=== PATIENT | male | born 1965 | race Caucasian/White ===

== ENCOUNTER → 2021-02-01 | Outpatient (CLI) | payer BC ==
--- NOTE | 2021-02-01 15:28 | XR ---
EXAMINATION TYPE: XR lumbosacral spine min 4V DATE OF EXAM: 02/01/2021 CLINICAL HISTORY: Chronic low back pain TECHNIQUE: Frontal, lateral, and oblique images of the lumbar spine are obtained. COMPARISON: None FINDINGS: There are 5 lumbar type vertebral bodies identified. The lumbar spine shows straightened alignment without evidence of acute fracture or dislocation. Vertebral body heights and disk space he ights are within normal limits. Moderate multilevel anterior and lateral spurring. The oblique imag es appear within normal limits. The overlying soft tissue appears unremarkable. IMPRESSION: As above.
== END ==
LOC: RADXRYALE 14:56
PROVIDERS: ATTEND Physician Assistant
DX: M54.5 Low back pain (principal)
CPT/HCPCS: 72110

== ENCOUNTER 2021-05-29 17:36 | Inpatient (IN) | payer BC ==
[2021-05-29 17:58] LABS: Glucose,Whole Blood 114 mg/dL (75-99)
[2021-05-29] MEDS ORDERED: SODIUM CHLORIDE 0.9% 1,000 ML IV STA ×2 (18:09→21:18)
[2021-05-29] MEDS ORDERED: ONDANSETRON 4 MG/2 ML VIAL IVP STA (18:27)
[2021-05-29] MEDS ORDERED: MORPHINE SULFATE 4 MG/ML SYRINGE IVP STA (18:27)
--- NOTE | 2021-05-29 18:27 | ED ---
General Adult HPI - General Chief complaint: Fall Stated complaint: Syncope Time Seen by Provider: 05/29/21 17:40 Source: EMS Mode of arrival: EMS Limitations: no limitations - History of Present Illness Initial comments: 55-year-old male presents to the emergency room for syncopal episode. Patient had a syncopal episode today. He states that last night he started to not feel well and didn't have an appetite. He started to have lower abdominal pain on the right side. He did not eat dinner. He also had several episodes of diarrhea. 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 States that he did drink water. Patient states he got home and went in his crotch. He sat down started to feel lightheaded. He therefore left his crutch walk to his house and had a syncopal episode. Patient then presented to the emergency room. Patient does have a history of hypertension but otherwise does not have medical problems.Patient has no other complaints at this time including shortness of breath, chest pain, nausea or vomiting, headache, or visual changes. - Related Data Home Medications Medication Instructions Recorded Confirmed [place] (Unknown Strength) 1 tab PO ONCE PRN 05/29/21 05/29/21 Valsartan/Hydrochlorothiazide 1 tab PO DAILY 05/29/21 05/29/21 [Valsartan-Hctz 160-25 mg Tab] Allergies Allergy/AdvReac Type Severity Reaction Status Date / Time No Known Allergies Allergy Verified 05/29/21 20:56 Review of Systems ROS Statement: Those systems with pertinent positive or pertinent negative responses have been documented in the HPI. ROS Other: All systems not noted in ROS Statement are negative. Past Medical History Past Medical History: Hypertension History of Any Multi-Drug Resistant Organisms: None Reported Past Surgical History: No Surgical Hx Reported Past Psychological History: No Psychological Hx Reported Smoking Status: Never smoker Past Alcohol Use History: Occasional Past Drug Use History: Marijuana General Exam Limitations: no limitations General appearance: alert, in no apparent distress Head exam: Present: atraumatic, normocephalic, normal inspection Eye exam: Present: normal appearance, PERRL, EOMI. Absent: scleral icterus, conjunctival injection, periorbital swelling ENT exam: Present: normal exam, mucous membranes moist Neck exam: Present: normal inspection. Absent: tenderness, meningismus, lymphadenopathy Respiratory exam: Present: normal lung sounds bilaterally. Absent: respiratory distress, wheezes, rales, rhonchi, stridor Cardiovascular Exam: Present: regular rate, normal rhythm, normal heart sounds. Absent: systolic murmur, diastolic murmur, rubs, gallop, clicks GI/Abdominal exam: Present: soft, tenderness (Tenderness to the right upper and lower abdomen), normal bowel sounds. Absent: distended, guarding, rebound, rigid Neurological exam: Present: alert Course Vital Signs 05/29/21 05/29/21 05/29/21 17:37 17:51 18:21 Temperature 98.3 F Pulse Rate 92 87 Respiratory 18 Rate Blood Pressure 102/65 Blood Pressure 117/77 [Left Arm] Blood Pressure 106/71 [Right Arm Sitting] Blood Pressure 110/69 [Right Arm Standing] Blood Pressure 112/67 [Right Arm Supine] O2 Sat by Pulse 96 Oximetry 05/29/21 05/29/21 05/29/21 18:59 20:56 21:38 Temperature 97.2 F L Pulse Rate 85 80 89 Respiratory 18 17 19 Rate Blood Pressure 103/56 100/62 100/62 Blood Pressure [Left Arm] Blood Pressure [Right Arm Sitting] Blood Pressure [Right Arm Standing] Blood Pressure [Right Arm Supine] O2 Sat by Pulse 98 96 95 Oximetry EKG Findings - EKG Comments: EKG Findings:: Normal sinus rhythm, ventricular rate 88, WA interval 148, QTc 442 Medical Decision Making - Medical Decision Making Vitals are stable. Patient is of right lower quadrant tenderness with guarding. CBC did show leukocytosis. Lactic acid is normal 0.7. CMP reveals evidence of acute kidney injury likely secondary to dehydration. Suspect syncopal episode was due to dehydration as patient had not had an appetite and has not been eating or drinking. Urinalysis is negative. CT abdomen and pelvis does show findings consistent with uncomplicated acute appendicitis. There is a lung nodule noted on x-ray which patient was notified about. Patient was started on Zosyn and blood cultures were obtained. Case discussed with Dr. Royal who does accept the admission. States that certain degree will be done tomorrow morning. Patient will be kept nothing by mouth on IV fluids, IV antibiotics, and pain medication. Patient updated on plan. - Lab Data Result diagrams: 05/29/21 18:17 05/29/21 18:17 Lab Results 05/29/21 05/29/21 05/29/21 Range/Units 17:46 18:17 18:17 WBC 18.6 H (3.8-10.6) k/uL RBC 3.87 L (4.30-5.90) m/uL Hgb 13.1 (13.0-17.5) gm/dL Hct 37.1 L (39.0-53.0) % MCV 95.8 (80.0-100.0) fL MCH 33.9 (25.0-35.0) pg MCHC 35.3 (31.0-37.0) g/dL RDW 12.5 (11.5-15.5) % Plt Count 244 (150-450) k/uL MPV 7.7 Neutrophils % 83 % Lymphocytes % 9 % Monocytes % 6 % Eosinophils % 1 % Basophils % 0 % Neutrophils # 15.4 H (1.3-7.7) k/uL Lymphocytes # 1.7 (1.0-4.8) k/uL Monocytes # 1.1 H (0-1.0) k/uL Eosinophils # 0.2 (0-0.7) k/uL Basophils # 0.1 (0-0.2) k/uL PT 10.0 (9.0-12.0) sec INR 0.9 (<1.2) APTT 22.0 (22.0-30.0) sec Sodium (137-145) mmol/L Potassium (3.5-5.1) mmol/L Chloride (98-107) mmol/L Carbon Dioxide (22-30) mmol/L Anion Gap mmol/L BUN (9-20) mg/dL Creatinine (0.66-1.25) mg/dL Est GFR (CKD-EPI)AfAm (>60 ml/min/1.73 sqM) Est GFR (CKD-EPI)NonAf (>60 ml/min/1.73 sqM) Glucose (74-99) mg/dL POC Glucose (mg/dL) 114 H (75-99) mg/dL POC Glu Piano Assembler ID Mobile, Delfina Plasma Lactic Acid Dong (0.7-2.0) mmol/L Calcium (8.4-10.2) mg/dL Magnesium (1.6-2.3) mg/dL Total Bilirubin (0.2-1.3) mg/dL AST (17-59) U/L ALT (4-49) U/L Alkaline Phosphatase (38-126) U/L Troponin I (0.000-0.034) ng/mL Total Protein (6.3-8.2) g/dL Albumin (3.5-5.0) g/dL Urine Color Urine Appearance (Clear) Urine pH (5.0-8.0) Ur Specific [place] (1.001-1.035) Urine Protein (Negative) Urine Glucose (UA) (Negative) Urine Ketones (Negative) Urine Blood (Negative) Urine Nitrite (Negative) Urine Bilirubin (Negative) Urine Urobilinogen (<2.0) mg/dL Ur Leukocyte Esterase (Negative) Urine RBC (0-5) /hpf Urine WBC (0-5) /hpf Ur Squamous Epith Cells (0-4) /hpf Urine Bacteria (None) /hpf Hyaline Casts (0-2) /lpf Urine Mucus (None) /hpf 05/29/21 05/29/21 05/29/21 Range/Units 18:17 18:17 18:17 WBC (3.8-10.6) k/uL RBC (4.30-5.90) m/uL Hgb (13.0-17.5) gm/dL Hct (39.0-53.0) % MCV (80.0-100.0) fL MCH (25.0-35.0) pg MCHC (31.0-37.0) g/dL RDW (11.5-15.5) % Plt Count (150-450) k/uL MPV Neutrophils % % Lymphocytes % % Monocytes % % Eosinophils % % Basophils % % Neutrophils # (1.3-7.7) k/uL Lymphocytes # (1.0-4.8) k/uL Monocytes # (0-1.0) k/uL Eosinophils # (0-0.7) k/uL Basophils # (0-0.2) k/uL PT (9.0-12.0) sec INR (<1.2) APTT (22.0-30.0) sec Sodium 136 L (137-145) mmol/L Potassium 3.7 (3.5-5.1) mmol/L Chloride 101 (98-107) mmol/L Carbon Dioxide 21 L (22-30) mmol/L Anion Gap 14 mmol/L BUN 25 H (9-20) mg/dL Creatinine 1.99 H (0.66-1.25) mg/dL Est GFR (CKD-EPI)AfAm 42 (>60 ml/min/1.73 sqM) Est GFR (CKD-EPI)NonAf 37 (>60 ml/min/1.73 sqM) Glucose 114 H (74-99) mg/dL POC Glucose (mg/dL) (75-99) mg/dL POC Glu Piano Assembler ID Plasma Lactic Acid Dong 0.7 (0.7-2.0) mmol/L Calcium 9.1 (8.4-10.2) mg/dL Magnesium 1.9 (1.6-2.3) mg/dL Total Bilirubin 0.9 (0.2-1.3) mg/dL AST 27 (17-59) U/L ALT 27 (4-49) U/L Alkaline Phosphatase 65 (38-126) U/L Troponin I (0.000-0.034) ng/mL Total Protein 6.5 (6.3-8.2) g/dL Albumin 4.0 (3.5-5.0) g/dL Urine Color Yellow Urine Appearance Cloudy (Clear) Urine pH 5.5 (5.0-8.0) Ur Specific [place] 1.024 (1.001-1.035) Urine Protein 1+ H (Negative) Urine Glucose (UA) Negative (Negative) Urine Ketones Negative (Negative) Urine Blood Negative (Negative) Urine Nitrite Negative (Negative) Urine Bilirubin Negative (Negative) Urine Urobilinogen <2.0 (<2.0) mg/dL Ur Leukocyte Esterase Negative (Negative) Urine RBC 1 (0-5) /hpf Urine WBC 10 H (0-5) /hpf Ur Squamous Epith Cells 1 (0-4) /hpf Urine Bacteria Rare H (None) /hpf Hyaline Casts 70 H (0-2) /lpf Urine Mucus Moderate H (None) /hpf 05/29/21 Range/Units 18:17 WBC (3.8-10.6) k/uL RBC (4.30-5.90) m/uL Hgb (13.0-17.5) gm/dL Hct (39.0-53.0) % MCV (80.0-100.0) fL MCH (25.0-35.0) pg MCHC (31.0-37.0) g/dL RDW (11.5-15.5) % Plt Count (150-450) k/uL MPV Neutrophils % % Lymphocytes % % Monocytes % % Eosinophils % % Basophils % % Neutrophils # (1.3-7.7) k/uL Lymphocytes # (1.0-4.8) k/uL Monocytes # (0-1.0) k/uL Eosinophils # (0-0.7) k/uL Basophils # (0-0.2) k/uL PT (9.0-12.0) sec INR (<1.2) APTT (22.0-30.0) sec Sodium (137-145) mmol/L Potassium (3.5-5.1) mmol/L Chloride (98-107) mmol/L Carbon Dioxide (22-30) mmol/L Anion Gap mmol/L BUN (9-20) mg/dL Creatinine (0.66-1.25) mg/dL Est GFR (CKD-EPI)AfAm (>60 ml/min/1.73 sqM) Est GFR (CKD-EPI)NonAf (>60 ml/min/1.73 sqM) Glucose (74-99) mg/dL POC Glucose (mg/dL) (75-99) mg/dL POC Glu Piano Assembler ID Plasma Lactic Acid Dong (0.7-2.0) mmol/L Calcium (8.4-10.2) mg/dL Magnesium (1.6-2.3) mg/dL Total Bilirubin (0.2-1.3) mg/dL AST (17-59) U/L ALT (4-49) U/L Alkaline Phosphatase (38-126) U/L Troponin I <0.012 (0.000-0.034) ng/mL Total Protein (6.3-8.2) g/dL Albumin (3.5-5.0) g/dL Urine Color Urine Appearance (Clear) Urine pH (5.0-8.0) Ur Specific [place] (1.001-1.035) Urine Protein (Negative) Urine Glucose (UA) (Negative) Urine Ketones (Negative) Urine Blood (Negative) Urine Nitrite (Negative) Urine Bilirubin (Negative) Urine Urobilinogen (<2.0) mg/dL Ur Leukocyte Esterase (Negative) Urine RBC (0-5) /hpf Urine WBC (0-5) /hpf Ur Squamous Epith Cells (0-4) /hpf Urine Bacteria (None) /hpf Hyaline Casts (0-2) /lpf Urine Mucus (None) /hpf Disposition Clinical Impression: Appendicitis, JAGJIT (acute kidney injury) Disposition: ADMITTED IP TO THIS HOSP Is patient prescribed a controlled substance at d/c from ED?: No Referrals: Shaheen Giron DO [Primary Care Provider] - 1-2 days Time of Disposition: 22:00
[2021-05-29 18:29] LABS: Basophils # (A) 0.1 k/uL (0-0.2); Basophils % (A) 0 %; Eosinophils # (A) 0.2 k/uL (0-0.7); Eosinophils % (A) 1 %; HCT 37.1 % (39.0-53.0); HGB 13.1 gm/dL (13.0-17.5); Lymphocytes # (A) 1.7 k/uL (1.0-4.8); Lymphocytes % (A) 9 %; MCH 33.9 pg (25.0-35.0); MCHC 35.3 g/dL (31.0-37.0); MCV 95.8 fL (80.0-100.0); Mean Platelet Volume 7.7; Monocytes # (A) 1.1 k/uL (0-1.0); Monocytes % (A) 6 %; Neutrophils # (A) 15.4 k/uL (1.3-7.7); Neutrophils % (A) 83 %; Platelet Count 244 k/uL (150-450); RBC 3.87 m/uL (4.30-5.90); RDW 12.5 % (11.5-15.5); WBC 18.6 k/uL (3.8-10.6)
[2021-05-29 18:41] LABS: Calcium 9.1 mg/dL (8.4-10.2); Magnesium 1.9 mg/dL (1.6-2.3); Potassium 3.7 mmol/L (3.5-5.1); Total Bilirubin 0.9 mg/dL (0.2-1.3); Total Protein 6.5 g/dL (6.3-8.2)
[2021-05-29 18:45] LABS: INR 0.9 (<1.2)
[2021-05-29 19:10] LABS: Appearance,Urine Cloudy (Clear); Bacteria,Urine Rare /hpf; Bilirubin,Urine Negative (Negative); Blood,Urine Negative (Negative); Color,Urine Yellow; Glucose,Urine (UA) Negative (Negative); Hyaline Casts,Urine 70 /lpf (0-2); Ketones,Urine Negative (Negative); Leukocyte Esterase,Urine Negative (Negative); Mucus,Urine Moderate /hpf; Nitrite,Urine Negative (Negative); PH, Urine 5.5 (5.0-8.0); Protein,Urine 1+ (Negative); RBC,Urine 1 /hpf (0-5); Specific Gravity,Urine 1.024 (1.001-1.035); Squamous Epithelial Cell,Urine 1 /hpf (0-4); Urobilinogen,Urine <2.0 mg/dL (<2.0); WBC,Urine 10 /hpf (0-5)
--- NOTE | 2021-05-29 19:29 | XR ---
EXAMINATION TYPE: XR chest 2V DATE OF EXAM: 05/29/2021 COMPARISON: NONE HISTORY: Syncope. TECHNIQUE: Frontal and lateral views of the chest are obtained. FINDINGS: There is a 1.6 cm right lower lung nodule. Otherwise no significant infiltrate pleural eff usion, or pneumothorax seen. The cardiac silhouette size is within normal limits. The osseous stru ctures are intact. IMPRESSION: 1.6 cm right lower lung nodule. Recommend CT for further evaluation. Otherwise no acute cardiopulmonary abnormality.
--- NOTE | 2021-05-29 21:12 | CT ---
EXAMINATION TYPE: CT abdomen pelvis wo con DATE OF EXAM: 05/29/2021 COMPARISON: None available. HISTORY: Right lower quadrant pain. Automated exposure control for dose reduction was used. TECHNIQUE: Helical acquisition of images was performed from the lung bases through the pelvis. FINDINGS: LUNG BASES: No significant abnormality is appreciated. LIVER/GB: No acute abnormality is appreciated. Hepatic steatosis is seen. PANCREAS: No significant abnormality is seen. SPLEEN: No significant abnormality is seen. ADRENALS: No significant abnormality is seen. KIDNEYS: No significant abnormality is seen. FREE AIR: No free air is visualized RETROPERITONEAL ADENOPATHY: None visualized REPRODUCTIVE ORGANS: No significant abnormality is seen URINARY BLADDER: No significant abnormality is seen. PELVIC ADENOPATHY: None visualized. OSSEOUS STRUCTURES: No significant abnormality is seen. BOWEL: Visualized blind-ending pouch in the right lower quadrant with surrounding inflammatory juarez es and measuring up to 1.3 cm in diameter. No bowel obstruction, free air or fluid. OTHER: None. IMPRESSION: FINDINGS CONSISTENT WITH UNCOMPLICATED ACUTE APPENDICITIS. FINDINGS REPORTED TO CARING CLINICIAN BY ME AT TIME OF DICTATION.
[2021-05-29] MEDS ORDERED: PIPERACILLIN-TAZOBACTAM 3.375 GM in SODIUM CHLORIDE 0.9% 100 ML IVPB STA (21:18)
[2021-05-29] MEDS ORDERED: NALOXONE 0.4 MG/ML 1 ML VIAL IV PRN (21:56)
[2021-05-29] MEDS ORDERED: HYDROmorphone 0.5 MG/0.5 ML SYRINGE IVP PRN (21:56)
[2021-05-29] MEDS ORDERED: ONDANSETRON 4 MG/2 ML VIAL IVP PRN (21:56)
[2021-05-30] MEDS: SODIUM CHLORIDE 0.9% 1,000 ML IV SCH ×4 (02:10→21:25)
[2021-05-30] MEDS: PIPERACILLIN-TAZOBACTAM 3.375 GM in SODIUM CHLORIDE 0.9% 100 ML IVPB SCH ×3 (05:28→21:24)
[2021-05-30] MEDS ORDERED: PIPERACILLIN-TAZOBACTAM 3.375 GM in SODIUM CHLORIDE 0.9% 100 ML IVPB SCH (06:00)
--- NOTE | 2021-05-30 06:39 | P.GSHP ---
History of Present Illness H&P Date: 05/30/21 Chief Complaint: Acute appendicitis 55-year-old male comes in the ER last night after a syncopal episode complaining of abdominal pain. Patient says he passed out for approximately 10 minutes. Started having pain on Monday. The pain became slightly more severe yesterday. Pain was mostly in the right lower quadrant. 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 Appetite was diminished although better now. Normal bowel habits. White blood cell count is elevated. CAT scan shows uncomplicated appendicitis. Past Medical History Past Medical History: Hypertension History of Any Multi-Drug Resistant Organisms: None Reported Past Surgical History: No Surgical Hx Reported Past Anesthesia/Blood Transfusion Reactions: No Reported Reaction Past Psychological History: No Psychological Hx Reported Smoking Status: Never smoker Past Alcohol Use History: Occasional Past Drug Use History: Marijuana Medications and Allergies Home Medications Medication Instructions Recorded Confirmed Type [place] (Unknown Strength) 1 tab PO ONCE PRN 05/29/21 05/29/21 History Valsartan/Hydrochlorothiazide 1 tab PO DAILY 05/29/21 05/29/21 History [Valsartan-Hctz 160-25 mg Tab] Allergies Allergy/AdvReac Type Severity Reaction Status Date / Time No Known Allergies Allergy Verified 05/29/21 20:56 Surgical - Exam Vital Signs Temp Pulse Resp BP Pulse Ox 98.3 F 92 18 102/65 96 05/29/21 17:37 05/29/21 17:37 05/29/21 17:37 05/29/21 17:37 05/29/21 17:37 Physical exam: General: Well-developed, well-nourished HEENT: Normocephalic, sclerae nonicteric Abdomen: Right lower quadrant tenderness, nondistended Extremities: No edema Neuro: Alert and oriented Results - Labs 05/29/21 18:17 05/29/21 18:17 Abnormal Lab Results - Last 24 Hours (Table) 05/29/21 05/29/21 05/29/21 Range/Units 17:46 18:17 18:17 WBC 18.6 H (3.8-10.6) k/uL RBC 3.87 L (4.30-5.90) m/uL Hct 37.1 L (39.0-53.0) % Neutrophils # 15.4 H (1.3-7.7) k/uL Monocytes # 1.1 H (0-1.0) k/uL Sodium (137-145) mmol/L Carbon Dioxide (22-30) mmol/L BUN (9-20) mg/dL Creatinine (0.66-1.25) mg/dL Glucose (74-99) mg/dL POC Glucose (mg/dL) 114 H (75-99) mg/dL Urine Protein 1+ H (Negative) Urine WBC 10 H (0-5) /hpf Urine Bacteria Rare H (None) /hpf Hyaline Casts 70 H (0-2) /lpf Urine Mucus Moderate H (None) /hpf 05/29/21 Range/Units 18:17 WBC (3.8-10.6) k/uL RBC (4.30-5.90) m/uL Hct (39.0-53.0) % Neutrophils # (1.3-7.7) k/uL Monocytes # (0-1.0) k/uL Sodium 136 L (137-145) mmol/L Carbon Dioxide 21 L (22-30) mmol/L BUN 25 H (9-20) mg/dL Creatinine 1.99 H (0.66-1.25) mg/dL Glucose 114 H (74-99) mg/dL POC Glucose (mg/dL) (75-99) mg/dL Urine Protein (Negative) Urine WBC (0-5) /hpf Urine Bacteria (None) /hpf Hyaline Casts (0-2) /lpf Urine Mucus (None) /hpf Diabetes panel 05/29/21 Range/Units 18:17 Sodium 136 L (137-145) mmol/L Potassium 3.7 (3.5-5.1) mmol/L Chloride 101 (98-107) mmol/L Carbon Dioxide 21 L (22-30) mmol/L BUN 25 H (9-20) mg/dL Creatinine 1.99 H (0.66-1.25) mg/dL Glucose 114 H (74-99) mg/dL Calcium 9.1 (8.4-10.2) mg/dL AST 27 (17-59) U/L ALT 27 (4-49) U/L Alkaline Phosphatase 65 (38-126) U/L Total Protein 6.5 (6.3-8.2) g/dL Albumin 4.0 (3.5-5.0) g/dL Calcium panel 05/29/21 Range/Units 18:17 Calcium 9.1 (8.4-10.2) mg/dL Albumin 4.0 (3.5-5.0) g/dL Pituitary panel 05/29/21 Range/Units 18:17 Sodium 136 L (137-145) mmol/L Potassium 3.7 (3.5-5.1) mmol/L Chloride 101 (98-107) mmol/L Carbon Dioxide 21 L (22-30) mmol/L BUN 25 H (9-20) mg/dL Creatinine 1.99 H (0.66-1.25) mg/dL Glucose 114 H (74-99) mg/dL Calcium 9.1 (8.4-10.2) mg/dL Adrenal panel 05/29/21 Range/Units 18:17 Sodium 136 L (137-145) mmol/L Potassium 3.7 (3.5-5.1) mmol/L Chloride 101 (98-107) mmol/L Carbon Dioxide 21 L (22-30) mmol/L BUN 25 H (9-20) mg/dL Creatinine 1.99 H (0.66-1.25) mg/dL Glucose 114 H (74-99) mg/dL Calcium 9.1 (8.4-10.2) mg/dL Total Bilirubin 0.9 (0.2-1.3) mg/dL AST 27 (17-59) U/L ALT 27 (4-49) U/L Alkaline Phosphatase 65 (38-126) U/L Total Protein 6.5 (6.3-8.2) g/dL Albumin 4.0 (3.5-5.0) g/dL Assessment and Plan (1) Appendicitis Narrative/Plan: 55-year-old male with acute appendicitis. Will proceed with laparoscopic appendectomy, possible open appendectomy at this time. Risks of bleeding, infection, scarring, hernia, abscess, bladder bowel and ureteral injury, conversion to an open procedure reviewed. He understands and wishes to proceed. Current Visit: Yes Status: Acute Code(s): K37 - UNSPECIFIED APPENDICITIS SNOMED Code(s): 62529644
[2021-05-30] MEDS ORDERED: ONDANSETRON 4 MG/2 ML VIAL ONE (06:41)
[2021-05-30] MEDS ORDERED: fentaNYL (PF) 50 MCG/ML 2 ML AMP ONE (06:41)
[2021-05-30] MEDS ORDERED: NEOSTIGMINE 1 MG/ML 10 ML VIAL ONE (06:41)
[2021-05-30] MEDS ORDERED: SUCCINYLCHOLINE CHLORIDE 100 MG/5 ML SYR IV ONE (06:41)
[2021-05-30] MEDS ORDERED: DEXAMETHASONE SOD PHOSPHATE 10 MG/ML 1 ML VIAL ONE (06:41)
[2021-05-30] MEDS ORDERED: ROCURONIUM 10 MG/ML (5 ML VIAL) IV ONE (06:41)
[2021-05-30] MEDS ORDERED: MIDAZOLAM 2 MG/2 ML VIAL ONE (06:41)
[2021-05-30] MEDS ORDERED: GLYCOPYRROLATE 0.2 MG/ML 2 ML VIAL ONE (06:41)
[2021-05-30] MEDS ORDERED: KETOROLAC 15 MG/ML 1 ML VIAL ONE (06:41)
[2021-05-30] MEDS ORDERED: LIDOCAINE 1% INJ 10MG/ML (20 ML MDV) ONE (06:41)
[2021-05-30] MEDS ORDERED: PROPOFOL 10 MG/ML 20 ML VIAL IV ONE (06:41)
[2021-05-30] MEDS ORDERED: IV FLUID CONTINUATION 1,000 ML IV ONE (06:45)
[2021-05-30] MEDS ORDERED: BUPIVACAINE (PF) 0.5% 30 ML VIAL SQ ONE ×2 (07:13)
[2021-05-30] MEDS ORDERED: LACTATED RINGERS 1,000 ML IV ONE (07:13)
[2021-05-30] MEDS ORDERED: HYDROmorphone 1 MG/ML 1 ML SYRINGE IVP PRN (07:44)
[2021-05-30] MEDS ORDERED: HYDROcodone/APAP 5-325MG 1 EACH TAB PO PRN (07:44)
--- NOTE | 2021-05-30 07:47 | P.OP ---
Date of Procedure: 05/30/21 Procedure(s) Performed: PREOPERATIVE DIAGNOSIS: Acute appendicitis POSTOPERATIVE DIAGNOSIS: Acute appendicitis with periappendiceal abscess and localized rupture PROCEDURE: Laparoscopic appendectomy SURGEON: Genny EBL: Rachel Vargas ANESTHESIA: General COMPLICATIONS: None OPERATIVE PROCEDURE: The patient was brought and placed on the operating table in the supine position. The patient was placed under general anesthesia. The abdomen was prepped and draped in the usual sterile fashion. A small vertical infraumbilical incision was made. The fascia was retracted anteriorly with Rickreall forceps. The Veress needle was advanced into the peritoneal cavity. The saline drop test was normal. Insufflation took place to 15 mmHg. A 5 mm trocar was then placed. An additional 5 mm suprapubic trocar was placed under direct visualization as well as a 12 mm left lower quadrant trocar under direct visualization. The appendix was inspected. It was acutely inflamed. There was a small 2 similar abscess adjacent to the midportion of the appendix that was contained. This was fully evacuated. This was then irrigated area no further purulence was seen. The mesoappendix was divided using the LigaSure device. The base of the appendix was divided using a linear 45 mm intestinal stapler. The appendix was brought out of the peritoneal cavity through the left lower quadrant trocar site with an Endo Catch bag. The fascia at the 12 mm site was closed using a Thierno-Nya 0 Vicryl stitch. The skin at all 3 sites was closed using 4-0 Monocryl sutures. Skin glue was then applied. DISPOSITION: Stable to recovery room
[2021-05-30] MEDS ORDERED: HYDROmorphone 0.5 MG/0.5 ML SYRINGE IVP ONE ×3 (07:50→08:10)
[2021-05-30] MEDS ORDERED: KETOROLAC 15 MG/ML 1 ML VIAL IVP ONE (07:52)
[2021-05-30] MEDS ORDERED: diphenhydrAMINE 50 MG/ML 1 ML VIAL IVP ONE (07:59)
[2021-05-30] MEDS ORDERED: VALSARTAN 160 MG TAB PO SCH ×2 (09:00)
[2021-05-30] MEDS ORDERED: hydroCHLOROthiazide 25 MG TAB PO SCH (09:00)
[2021-05-30] MEDS: HEPARIN SODIUM,PORCINE/PF 5,000 UNIT/0.5 ML SYRINGE SQ SCH ×2 (09:02→16:26)
[2021-05-30] MEDS: DOCUSATE 100 MG CAP PO SCH ×2 (09:02→21:24)
[2021-05-30] MEDS: metroNIDAZOLE-NS PMX 500 MG in SALINE 1 100ML.BAG IVPB SCH ×2 (09:45→16:27)
--- NOTE | 2021-05-30 13:16 | P.CONS ---
History of Present Illness - Reason for Consult Acute renal failure, sepsis - History of Present Illness 53-year-old male came in with a syncopal episode and abdominal pain found to have appendicitis and was subsequently admitted. Patient appears to have acute renal failure patient appears to have significant intravascular depletion patient creatinine went up to 1.9 patient is presently on IV fluids which will be continued. Patient was bit hypotensive. Patient is presently on Zosyn and metronidazole. And Artane metronidazole. Patient is status post appendectomy. Patient usually uses a an ALLY inhibitor and a diuretic combination pill the blood pressure along with Norvasc. Patient had leukocytosis with a white blood cell count going up. In thousand patient is feeling better after the appende ctomy patient underwent laparoscopic appendectomy found to have acute appendicitis with periappendiceal abscess and localized rupture. REVIEW OF SYSTEMS: CONSTITUTIONAL: No fever, no malaise, no fatigue. HEENT: No recent visual problems or hearing problems. Denied any sore throat. CARDIOVASCULAR: No chest pain, orthopnea, PND, no palpitationse. PULMONARY: No shortness of breath, no cough, no hemoptysis. GASTROINTESTINAL: As mentioned in HPI NEUROLOGICAL: No headaches, no weakness, no numbness. HEMATOLOGICAL: Denies any bleeding or petechiae. GENITOURINARY: Denies any burning micturition, frequency, or urgency. MUSCULOSKELETAL/RHEUMATOLOGICAL: Denies any joint pain, swelling, or any muscle pain. ENDOCRINE: Denies any polyuria or polydipsia. The rest of the 14-point review of systems is negative. PHYSICAL EXAMINATION: GENERAL: The patient is alert and oriented x3, not in any acute distress. Well developed, well nourished. HEENT: Pupils are round and equally reacting to light. EOMI. No scleral icterus. No conjunctival pallor. Normocephalic, atraumatic. No pharyngeal erythema. No thyromegaly. CARDIOVASCULAR: S1 and S2 present. No murmurs, rubs, or gallops. PULMONARY: Chest is clear to auscultation, no wheezing or crackles. ABDOMEN: Soft, nontender, nondistended, normoactive bowel sounds. No palpable organomegaly. Surgical site areas appear to be clean MUSCULOSKELETAL: No joint swelling or deformity. EXTREMITIES: No cyanosis, clubbing, or pedal edema. NEUROLOGICAL: Gross neurological examination did not reveal any focal deficits. SKIN: No rashes. Assessment and plan -Acute appendicitis: Patient is status post appendectomy patient has periappendicular abscess and patient is an above-mentioned antibiotics which will be continued. -Syncope secondary to sepsis and intravascular depletion and hypotension continue with IV fluids and aggressive hydration -Hypotension secondary to sepsis and appendectomy antidepressive medications will be held -Acute renal failure on chronic kidney disease stage II acute renal failure secondary to hypotension intravascular depletion and sepsis IV fluids will be continued hold off on ALLY inhibitor and diuretic combination hold off and other antidepressants medications as well We will continue to follow the patient -DVT prophylaxis: As per primary service Past Medical History Past Medical History: Hypertension History of Any Multi-Drug Resistant Organisms: None Reported Past Surgical History: No Surgical Hx Reported Past Anesthesia/Blood Transfusion Reactions: No Reported Reaction Past Psychological History: No Psychological Hx Reported Smoking Status: Never smoker Past Alcohol Use History: Occasional Past Drug Use History: Marijuana Medications and Allergies Home Medications Medication Instructions Recorded Confirmed Type Brea (Unknown Strength) 1 tab PO ONCE PRN 05/29/21 05/29/21 History Valsartan/Hydrochlorothiazide 1 tab PO DAILY 05/29/21 05/29/21 History [Valsartan-Hctz 160-25 mg Tab] Allergies Allergy/AdvReac Type Severity Reaction Status Date / Time No Known Allergies Allergy Verified 05/29/21 20:56 Physical Exam Vitals: Vital Signs Temp Pulse Pulse Pulse Resp BP BP 05/30/21 10:45 87 05/30/21 10:15 77 05/30/21 09:45 86 05/30/21 09:30 89 05/30/21 09:15 91 05/30/21 09:00 88 05/30/21 08:45 98.0 F 89 16 05/30/21 08:16 91 16 05/30/21 08:01 81 16 05/30/21 07:44 97.1 F L 77 16 05/30/21 02:42 98.3 F 84 16 130/80 05/30/21 02:10 16 05/29/21 23:04 98.1 F 16 05/29/21 22:26 77 05/29/21 21:38 89 19 100/62 05/29/21 20:56 97.2 F L 80 17 100/62 05/29/21 18:59 85 18 103/56 05/29/21 18:21 87 05/29/21 17:51 117/77 05/29/21 17:37 98.3 F 92 18 102/65 BP BP BP BP Pulse Ox 05/30/21 10:45 106/64 91 L 05/30/21 10:15 109/81 93 L 05/30/21 09:45 134/81 92 L 05/30/21 09:30 128/75 92 L 05/30/21 09:15 145/86 94 L 05/30/21 09:00 133/81 96 05/30/21 08:45 127/76 93 L 05/30/21 08:16 108/63 96 05/30/21 08:01 113/65 95 05/30/21 07:44 135/85 99 05/30/21 02:42 97 05/30/21 02:10 05/29/21 23:04 119/73 97 05/29/21 22:26 97 05/29/21 21:38 95 05/29/21 20:56 96 05/29/21 18:59 98 05/29/21 18:21 05/29/21 17:51 106/71 110/69 112/67 05/29/21 17:37 96 Intake and Output 05/29/21 05/30/21 05/30/21 22:59 06:59 14:59 Intake Total 200 350 Output Total 5 Balance 200 345 Intake: IV 200 350 Output: Estimated Blood Loss 5 Other: Voiding Method Toilet # Voids 2 Weight 99.79 kg Results CBC & Chem 7: 05/29/21 18:17 05/29/21 18:17 Labs: Abnormal Lab Results - Last 24 Hours (Table) 05/29/21 05/29/21 05/29/21 Range/Units 17:46 18:17 18:17 WBC 18.6 H (3.8-10.6) k/uL RBC 3.87 L (4.30-5.90) m/uL Hct 37.1 L (39.0-53.0) % Neutrophils # 15.4 H (1.3-7.7) k/uL Monocytes # 1.1 H (0-1.0) k/uL Sodium (137-145) mmol/L Carbon Dioxide (22-30) mmol/L BUN (9-20) mg/dL Creatinine (0.66-1.25) mg/dL Glucose (74-99) mg/dL POC Glucose (mg/dL) 114 H (75-99) mg/dL Urine Protein 1+ H (Negative) Urine WBC 10 H (0-5) /hpf Urine Bacteria Rare H (None) /hpf Hyaline Casts 70 H (0-2) /lpf Urine Mucus Moderate H (None) /hpf 05/29/21 Range/Units 18:17 WBC (3.8-10.6) k/uL RBC (4.30-5.90) m/uL Hct (39.0-53.0) % Neutrophils # (1.3-7.7) k/uL Monocytes # (0-1.0) k/uL Sodium 136 L (137-145) mmol/L Carbon Dioxide 21 L (22-30) mmol/L BUN 25 H (9-20) mg/dL Creatinine 1.99 H (0.66-1.25) mg/dL Glucose 114 H (74-99) mg/dL POC Glucose (mg/dL) (75-99) mg/dL Urine Protein (Negative) Urine WBC (0-5) /hpf Urine Bacteria (None) /hpf Hyaline Casts (0-2) /lpf Urine Mucus (None) /hpf
[2021-05-31] MEDS: metroNIDAZOLE-NS PMX 500 MG in SALINE 1 100ML.BAG IVPB SCH ×2 (01:32→09:50)
[2021-05-31] MEDS: HEPARIN SODIUM,PORCINE/PF 5,000 UNIT/0.5 ML SYRINGE SQ SCH ×2 (01:32→09:51)
[2021-05-31] MEDS: PIPERACILLIN-TAZOBACTAM 3.375 GM in SODIUM CHLORIDE 0.9% 100 ML IVPB SCH (05:04)
[2021-05-31 05:40] LABS: Basophils % (A) 0 %; Eosinophils % (A) 0 %; HCT 36.4 % (39.0-53.0); HGB 12.2 gm/dL (13.0-17.5); Lymphocytes # (A) 0.7 k/uL (1.0-4.8); Lymphocytes % (A) 6 %; MCH 32.7 pg (25.0-35.0); MCHC 33.4 g/dL (31.0-37.0); MCV 97.6 fL (80.0-100.0); Mean Platelet Volume 7.4; Monocytes # (A) 0.5 k/uL (0-1.0); Monocytes % (A) 4 %; Neutrophils # (A) 12.1 k/uL (1.3-7.7); Neutrophils % (A) 90 %; Platelet Count 251 k/uL (150-450); RBC 3.73 m/uL (4.30-5.90); RDW 12.8 % (11.5-15.5); WBC 13.5 k/uL (3.8-10.6)
[2021-05-31] MEDS: SODIUM CHLORIDE 0.9% 1,000 ML IV SCH (05:51)
[2021-05-31 05:58] LABS: African American GFR (CKD) 69 (>60 ml/min/1.73 sqM); Anion Gap 7 mmol/L; Blood Urea Nitrogen 19 mg/dL (9-20); Carbon Dioxide 24 mmol/L (22-30); Chloride 107 mmol/L (98-107); Glucose 117 mg/dL (74-99); Non-African American GFR(CKD) 60 (>60 ml/min/1.73 sqM); Potassium 4.2 mmol/L (3.5-5.1); Sodium 138 mmol/L (137-145)
[2021-05-31 07:22] VITALS: BP 128/79; PULSE 76; RESP 16; TEMP 98.8
[2021-05-31] MEDS: DOCUSATE 100 MG CAP PO SCH (09:47)
--- NOTE | 2021-05-31 11:38 | P.DS ---
<Azalea Hutton - Last Filed: 05/31/21 11:36> Hospital Course: Discharge diagnosis 1. Acute appendicitis with periappendiceal abscess and localized rupture status post laparoscopic appendectomy Hospital course 55-year-old male comes in the ER last night after a syncopal episode complaining of abdominal pain. Patient says he passed out for approximately 10 minutes. Started having pain on Monday. The pain became slightly more severe yesterday. Pain was mostly in the right lower quadrant. 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 Appetite was diminished although better now. Normal bowel habits. White blood cell count is elevated. CAT scan shows uncomplicated appendicitis. Patient is status post laparoscopic appendectomy. Patient tolerated surgery well. He reports that his pain is controlled. He is tolerating diet. He is having flatus and bowel movements. He is afebrile. His white count history down to 13.5. Incision sites clean dry and intact. Patient is stable for discharge. Please refer to chart for any further details. [employer] note has been reviewed by physician. Signing provider agrees with the documented findings, assessment, and plan of care. Patient Condition at Discharge: Stable Plan - Discharge Summary Discharge Rx Participant: No New Discharge Prescriptions: New metroNIDAZOLE [Flagyl] 500 mg PO TID #21 tab Amoxicillin/Potassium Clav [Augmentin 875-125 Tablet] 1 tab PO BID 7 Days #14 tab HYDROcodone/APAP 5-325MG [[employer] 5-325] 1 tab PO Q6HR PRN 3 Days #12 tab PRN Reason: Pain Losartan [Cozaar] 50 mg PO DAILY #30 tab Discontinued Valsartan/Hydrochlorothiazide [Valsartan-Hctz 160-25 mg Tab] 1 tab PO DAILY No Action [employer] (Unknown Strength) 1 tab PO ONCE PRN PRN Reason: Pain Discharge Medication List [employer] (Unknown Strength) 1 tab PO ONCE PRN 05/29/21 [History] Amoxicillin/Potassium Clav [Augmentin 875-125 Tablet] 1 tab PO BID 7 Days #14 tab 05/31/21 [Rx] HYDROcodone/APAP 5-325MG [[employer] 5-325] 1 tab PO Q6HR PRN 3 Days #12 tab 05/31/21 [Rx] Losartan [Cozaar] 50 mg PO DAILY #30 tab 05/31/21 [Rx] metroNIDAZOLE [Flagyl] 500 mg PO TID #21 tab 05/31/21 [Rx] Follow up Appointment(s)/Referral(s): Yang Royal MD [Medical Doctor] - 1 Week Shaheen Giron DO [Primary Care Provider] - 3 Days Activity/Diet/Wound Care/Special Instructions: No driving while taking [employer] No lifting over 10 pounds You may shower. No soaking or tub baths for 2 weeks Very light activity until you are reevaluated at your follow up appointment with your surgeon Do not take any Motrin due to elevated renal function Discharge Disposition: HOME SELF-CARE <Yang Royal - Last Filed: 05/31/21 12:16> Providers Date of admission: 05/31/21 11:01 Attending physician: Yang Royal Consults: 05/30/21 07:45 Consult Physician Routine Consulting Provider: Laine Paulino Consult Reason/Comments: Medical management Do you want consulting provider notified?: Yes Primary care physician: Shaheen Giron - Discharge Diagnosis(es) (1) Appendicitis Current Visit: Yes Status: Acute Hospital Course: As above. Patient doing well today. Labs improved. He is quite anxious for discharge. He is afebrile. May discharge on 1 week oral antibiotics. Follow- up one week.
--- NOTE | 2021-05-31 11:40 | P.PN ---
Subjective 53-year-old male came in with a syncopal episode and abdominal pain found to have appendicitis and was subsequently admitted. Patient appears to have acute renal failure patient appears to have significant intravascular depletion patient creatinine went up to 1.9 patient is presently on IV fluids which will be continued. Patient was bit hypotensive. Patient is presently on Zosyn and metronidazole. And Artane metronidazole. Patient is status post appendectomy. Patient usually uses a an ALLY inhibitor and a diuretic combination pill the bl ood pressure along with Norvasc. Patient had leukocytosis with a white blood cell count going up. In thousand patient is feeling better after the appendectomy patient underwent laparoscopic appendectomy found to have acute appendicitis with periappendiceal abscess and localized rupture. 05/31/2021 and patient is clinically doing well, passing gas, patient is being discharged from surgical perspective. Patient creatinine improved to 1.3. Baseline appears to be 1.2 patient blood pressure is within normal limits no although this is expected to go up. Patient probably is not a good candidate for diuretics crusting his baseline renal function being around 1.2. Patient will be given prescription for angiotensin receptor bubba and as a patient take this medication only if blood pressure starts going up which can happen next couple days. Patient to follow-up with primary care physician Dr. Warren closely. Constitutional: Denied any fatigue denied any fever. Cardio vascular: denied any chest pain, palpitations Gastrointestinal denied any nausea vomiting Pulmonary: Denied any shortness of breath cough Neurologic denied any new focal deficits All inpatient medications were reviewed and appropriate changes in these medications as dictated in the interval history and assessment and plan. PHYSICAL EXAMINATION: GENERAL: The patient is alert and oriented x3, not in any acute distress. Well developed, well nourished. HEENT: Pupils are round and equally reacting to light. EOMI. No scleral icterus. No conjunctival pallor. Normocephalic, atraumatic. No pharyngeal erythema. No thyromegaly. CARDIOVASCULAR: S1 and S2 present. No murmurs, rubs, or gallops. PULMONARY: Chest is clear to auscultation, no wheezing or crackles. ABDOMEN: Soft, nontender, nondistended, normoactive bowel sounds. No palpable organomegaly. Surgical site areas appear to be clean MUSCULOSKELETAL: No joint swelling or deformity. EXTREMITIES: No cyanosis, clubbing, or pedal edema. NEUROLOGICAL: Gross neurological examination did not reveal any focal deficits. SKIN: No rashes. Assessment and plan -Acute appendicitis: Patient is status post appendectomy patient has periappendicular abscess and patient is being discharged on antibiotics as per general surgery -Syncope secondary to sepsis and intravascular depletion and hypotension improved with IV fluids. -Hypotension secondary to sepsis and appendectomy antidepressive medications will be held -Acute renal failure on chronic kidney disease stage II acute renal failure secondary to hypotension intravascular depletion and sepsis IV fluids improved now Patient can be discharged from medical perspective Objective - Vital Signs Vital signs: Vital Signs Temp 98.8 F 05/31/21 07:00 Pulse 76 05/31/21 08:00 Resp 16 05/31/21 08:00 BP 128/79 05/31/21 07:00 Pulse Ox 96 05/31/21 07:00 Intake & Output 05/30/21 05/31/21 05/31/21 18:59 06:59 18:59 Intake Total 350 1200 Output Total 5 Balance 345 1200 Intake: IV 350 Oral 1200 Output: Estimated Blood Loss 5 Other: Voiding Method Toilet Toilet # Voids 3 4 # Bowel Movements 0 0 0 - Labs CBC & Chem 7: 05/31/21 05:02 05/31/21 05:02 Labs: Abnormal Lab Results - Last 24 Hours (Table) 05/31/21 05/31/21 Range/Units 05:02 05:02 WBC 13.5 H (3.8-10.6) k/uL RBC 3.73 L (4.30-5.90) m/uL Hgb 12.2 L (13.0-17.5) gm/dL Hct 36.4 L (39.0-53.0) % Neutrophils # 12.1 H (1.3-7.7) k/uL Lymphocytes # 0.7 L (1.0-4.8) k/uL Creatinine 1.34 H (0.66-1.25) mg/dL Glucose 117 H (74-99) mg/dL Microbiology - Last 24 Hours (Table) 05/29/21 21:23 Blood Culture - Preliminary Blood No Growth after 24 hours 05/29/21 21:23 Blood Culture - Preliminary Blood No Growth after 24 hours
== END 2021-05-31 12:18 | disposition home or self-care (01) | DRG 853 ==
LOC: EC 17:36 → 6NMEDSUR 21:30 → OBSVTOIN 05-31 11:01
PROVIDERS: ADMIT Surgery; ATTEND Surgery
PROC: 0DTJ4ZZ Resection of Appendix, Percutaneous Endoscopic Approach (ICD-10-PCS; principal; 2021-05-30 06:30)
DX: A41.9 Sepsis, unspecified organism (principal); K35.33 Acute appendicitis with perforation, localized peritonitis, and gangrene, with abscess; N17.9 Acute kidney failure, unspecified; R55 Syncope and collapse; E86.0 Dehydration; R91.1 Solitary pulmonary nodule; N18.2 Chronic kidney disease, stage 2 (mild); I12.9 Hypertensive chronic kidney disease with stage 1 through stage 4 chronic kidney disease, or unspecified chronic kidney disease; I95.9 Hypotension, unspecified
CPT/HCPCS: 36415; 71046; 74176; 80048; 80053; 81001; 83605; 83735; 84484; 85025; 85610; 85730; 87040; 88304; 93005; 96360; 96361; 96374; 99285

== ENCOUNTER → 2021-06-14 | Outpatient (CLI) | payer BC ==
--- NOTE | 2021-06-16 15:31 | CT ---
EXAMINATION TYPE: CT chest wo con DATE OF EXAM: 06/14/2021 COMPARISON: 05/29/2021 chest x-ray HISTORY: abnormal cxr CT DLP: 511.5 mGycm, Automated exposure control for dose reduction was used. CONTRAST: Performed injected with 0 mL of Isovue 300. TECHNIQUE: Axial images were obtained at 5 mm thick sections. Reconstructed images are reviewed on [employer] computer in the coronal plane. FINDINGS: Portion of the thyroid visualized is normal. There is a 1.6 cm nodule within the periphery of the right mid lung. Series 4 image 33. Finding is no nspecific. Primary Neoplasm or metastatic lesion could be considered No enlarged mediastinal or hilar adenopathy is evident. Large densely calcified nodes are in the subc arinal region and left peribronchial region. The ascending aorta diameter at the level of the main p ulmonary artery is 4.1 cm. The main pulmonary artery diameter at the bifurcation is 2.[address] sections are obtained through the upper abdomen. Abdomen is essentially unremarkable. IMPRESSIONS: 1. 1.6 cm nodule right mid lung field. Additional workup is recommended. Consider PET/CT. 2. Ascending thoracic aortic aneurysm measuring 4.1 cm at the main pulmonary artery.
== END | disposition home or self-care (01) ==
LOC: RADCTMAIN 18:02
PROVIDERS: ATTEND Family Medicine
DX: I71.2 Thoracic aortic aneurysm, without rupture (principal); R91.1 Solitary pulmonary nodule
CPT/HCPCS: 71250

== ENCOUNTER → 2021-07-16 | Outpatient (CLI) | payer BC ==
--- NOTE | 2021-07-17 15:50 | PE ---
EXAMINATION TYPE: PET CT fusion skull to thigh DATE OF EXAM: 07/16/2021 COMPARISON: Chest CT June 14, 2021. CT abdomen and pelvis May 29, 2021 HISTORY: Abnormal CT, solitary pulmonary nodule right lung. TECHNIQUE: Following the intravenous administration of 13.88 mCi of F-18 FDG, whole body images are performed from the skull base to the midthigh. Images are reviewed on the computer in the coronal, a xial, and sagittal planes. Reconstructed rotating images are created on independent workstation and reviewed on the computer. A localization and attenuation correction CT is performed in conjunction with the PET scan. Blood glucose level equals 98. SCAN: Initial Scan FINDINGS: SKULL BASE AND NECK: No areas of abnormal hypermetabolic uptake. CHEST, MEDIASTINUM, AND HILAR REGION: Redemonstration of 1.7 cm nodule in the right mid lung axial im age 89 is ametabolic. No areas of abnormal hypermetabolic uptake. ABDOMEN AND PELVIS: No adrenal masses. Normal excretion. No areas of abnormal hypermetabolic uptake. OSSEOUS STRUCTURES: No areas of abnormal hypermetabolic uptake. OTHER CT: Prominent calcified subcarinal lymph nodes and additional calcified left hilar lymph nodes. Liver diffusely low dense consistent with diffuse fatty infiltration. IMPRESSION: No suspicious hypermetabolic uptake to suggest malignancy. Stable 1.7 cm right midlung no dule. Consider CT follow-up in 6-12 months time to document stability.
== END | disposition home or self-care (01) ==
LOC: RADPETMAIN 16:12
PROVIDERS: ATTEND Internal Medicine
DX: R91.1 Solitary pulmonary nodule (principal)
CPT/HCPCS: 78815; A9552